=== PATIENT | female | born 1985 | race Two or more races ===

== ENCOUNTER 2021-07-30 17:46 | Emergency (ER) | payer SELFPAY ==
[~2021-07-30] VITALS: Ht 165.1 cm; Wt 65.0 kg
[2021-07-30] MEDS ORDERED: ONDANSETRON HCL 4MG/2ML INJ IV STA (18:30)
[2021-07-30] MEDS ORDERED: SODIUM CHLORIDE 0.9% 1,000 ML IV ONE (18:30)
[2021-07-30 18:59] LABS: BASOPHILS % 0.6 % (0.0-2.0); EOSINOPHILS % 0.9 % (0.0-5.0); HEMATOCRIT. 33.8 % (36.0-48.0); LYMPHOCYTES % 23.5 % (20.0-50.0); MEAN CORPUSCULAR HEMOGLOBIN 26.9 pg (28.0-32.0); MEAN CORPUSCULAR VOLUME 82.6 fL (81.0-99.0); MONOCYTES % 4.6 % (2.0-8.0); NEUTROPHILS % 70.4 % (40.0-76.0); PLATELET 179 x1000/uL (130-400); RED BLOOD CELL COUNT 4.08 mill/uL (4.2-5.4); RED CELL DISTRIBUTION WIDTH 12.9 % (11.6-14.6)
[2021-07-30 19:04] LABS: CHLORIDE 111 mEq/L (98-107)
[2021-07-30 19:08] LABS: ETHANOL BLOOD 274 mg/dL; HCG SCREEN NEGATIVE
[2021-07-30 20:50] VITALS: BP 91/54
== END 2021-07-30 20:59 | disposition home or self-care (01) ==
LOC: ER 17:46
DX: F10.129 Alcohol abuse with intoxication, unspecified (principal); Y90.8 Blood alcohol level of 240 mg/100 ml or more; R11.10 Vomiting, unspecified
CPT/HCPCS: 36415; 80053; 80320; 84703; 85025; 93005; 96374; 99284; J2405; J7030; G0480